=== PATIENT | female | born 1970 | race Caucasian/White ===

== ENCOUNTER 2016-05-20 16:38 | Emergency (ER) | payer SELFPAY ==
--- NOTE | 2016-05-20 16:48 | ED Physician Documentation ---
General Adult - HISTORIAN Historian: patient - HPI Stated Complaint: back pain Chief Complaint: General Adult Onset: days ago (1) Timing: still present Severity: moderate Further Comments: yes (Pt is a 46 yo female with acute/chronic back pain. 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 Pt had serious back injury 1 yr ago. Pt has been taking Lortab as well as gabapentin and klonopin, but pain persists.) - ROS CONST: no problems EYES/ENT: none CVS/RESP: cough, other (wheezing) GI/: none MS/SKIN/LYMPH: back pain - PAST HX Past History: COPD, other (chronic back pain, seizures) Allergies/Adverse Reactions: Allergies Allergy/AdvReac Type Severity Reaction Status Date / Time codeine Allergy Verified 05/20/16 16:48 morphine Allergy Verified 05/20/16 16:48 omeprazole [From Prilosec] Allergy Verified 05/20/16 16:48 omeprazole magnesium Allergy Verified 05/20/16 16:48 [From Prilosec] Penicillins Allergy Verified 05/20/16 16:48 tramadol Allergy Verified 05/20/16 16:48 Home Medications: Ambulatory Orders Medication Instructions Recorded Clonazepam [Klonopin] 1 mg PO 05/20/16 Furosemide [Lasix] 40 mg PO DAILY 05/20/16 Gabapentin [Neurontin] 100 mg PO TID 05/20/16 Hydrocodone/Acetaminophen [Lortab 1 each PO 05/20/16 7.5-325 mg Tablet] Phenytoin Sodium Extended 100 mg PO 05/20/16 [Dilantin] Ranitidine HCl [Zantac] 75 mg PO 05/20/16 - SOCIAL HX Smoking History: cigarettes - FAMILY HX Family History: No - REVIEWED ASSESSMENTS Nursing Assessment Reviewed: Yes Vitals Reviewed: Yes Progress - Progress Progress: Toradol 60 mg IM Diazepam 10 mg IM Duoneb HFN x 1 Percocet (5/325) 2 tabs po. Rx Percocet (5/325) 1-2 po q 4-6 h prn # 10. Rx Klonopin 1 mg. 1 po q 8 hrs prn (refill) #10 Albuterol (90 mcg/spray) 2 puffs q 4-6 h prn General Adult Physical Exam - PHYSICAL EXAM GENERAL APPEARANCE: moderate distress EENT: eye inspection normal, pharynx normal NECK: normal inspection, supple RESPIRATORY: wheezes CVS: reg rate & rhythm, heart sounds normal ABDOMEN: soft, no organomegaly, normal bowel sounds BACK: normal inspection, other (paraspinal lumbar tenderness, spasm) SKIN: warm/dry, normal color EXTREMITIES: non-tender, normal range of motion, no evidence of injury NEURO: oriented X3, motor nml, sensation nml Discharge Clincal Impression: Wheezing Back pain Qualifiers: Back pain location: low back pain Chronicity: unspecified Back pain laterality : unspecified Sciatica presence: unspecified whether sciatica present Qualified Code(s): M54.5 - Low back pain Referrals: Primary Doctor,No [Primary Care Provider] - Home Medications: Ambulatory Orders Clonazepam [Klonopin] 1 mg PO 05/20/16 Furosemide [Lasix] 40 mg PO DAILY 05/20/16 Gabapentin [Neurontin] 100 mg PO TID 05/20/16 Hydrocodone/Acetaminophen [Lortab 7.5-325 mg Tablet] 1 each PO 05/20/16 Phenytoin Sodium Extended [Dilantin] 100 mg PO 05/20/16 Ranitidine HCl [Zantac] 75 mg PO 05/20/16 Condition: Stable Disposition: 01 HOME, SELF-CARE Decision to Admit: NO Decision Time: 18:00
[2016-05-20 16:50] VITALS: BP 113/58
[2016-05-20] MEDS ORDERED: DIAZEPAM 5 MG/ML DISP.SYRIN ONE (16:52)
[2016-05-20] MEDS ORDERED: KETOROLAC TROMETHAMINE 60 MG/2 ML VIAL ONE (16:52)
[2016-05-20] MEDS: DIAZEPAM 5 MG/ML DISP.SYRIN IM ONE (16:57)
[2016-05-20] MEDS: KETOROLAC TROMETHAMINE 60 MG/2 ML VIAL IM ONE (16:58)
[2016-05-20] MEDS: IPRATROPIUM/ALBUTEROL SULFATE 3 ML AMPUL.NEB NEB ONE (17:18)
[2016-05-20] MEDS ORDERED: IPRATROPIUM/ALBUTEROL SULFATE 3 ML AMPUL.NEB NEB ONE (17:18)
[2016-05-20] MEDS: oxyCODONE/ACETAMINOPHEN 5/325 TABLET PO ONE (17:56)
== END 2016-05-20 18:05 | disposition home or self-care (01) ==
LOC: ED 16:38
DX: R06.2 Wheezing (principal); M54.5 Low back pain
CPT/HCPCS: A9270; J1885; J3360; 96372; 99283